=== PATIENT | male | born 1980 | race Caucasian/White ===

== ENCOUNTER 2018-11-05 17:51 | Emergency (ER) | payer OTHER, SELFPAY ==
[2018-11-05] MEDS ORDERED: Sulfameth/Trimethoprim DS 800-160mg TAB ONE (18:10)
[2018-11-05] MEDS ORDERED: cefTRIAXone\\ROCEPHIN 1 GM VIAL ONE (18:10)
[2018-11-05] MEDS ORDERED: Sterile Water 100 ML ONE (18:12)
== END 2018-11-05 18:37 | disposition home or self-care (01) ==
LOC: BURERS 17:51
DX: L03.114 Cellulitis of left upper limb (principal); I10 Essential (primary) hypertension; F17.210 Nicotine dependence, cigarettes, uncomplicated; Z79.899 Other long term (current) drug therapy
CPT/HCPCS: 96372; J0696

== ENCOUNTER 2018-11-11 17:41 | Emergency (ER) | payer SELFPAY ==
[2018-11-11] MEDS ORDERED: Bacitracin Zinc 1 Packet ONE (18:15)
== END 2018-11-11 18:27 | disposition home or self-care (01) ==
LOC: BURERS 17:41
DX: S51.812D Laceration without foreign body of left forearm, subsequent encounter (principal); I10 Essential (primary) hypertension; F17.210 Nicotine dependence, cigarettes, uncomplicated; Z79.899 Other long term (current) drug therapy